=== PATIENT | male | born 1995 | race Hispanic/Latino ===

== ENCOUNTER 2017-04-10 02:14 | Emergency (ER) | payer OTHER ==
[2017-04-10 02:30] VITALS: BMI 23.0
[2017-04-10 02:34] VITALS: BP 122/48; PULSE 101; RESP 18; TEMP 98; O2SAT 97
--- NOTE | 2017-04-10 04:09 | ED PDOC ---
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, reports nausea Past Medical History Reviewed: Historical Data, Nursing Documentation, Vital Signs Vital Signs: Last Vital Signs Temp 98.0 F 04/10/17 02:30 Pulse 101 H 04/10/17 02:30 Resp 18 04/10/17 02:30 BP 122/48 L 04/10/17 02:30 Pulse Ox 97 04/10/17 02:30 - Medical History PMH: No Chronic Diseases - Surgical History Surgical History: No Surg Hx - Family History Family History: States: No Known Family Hx - Living Arrangements Living Arrangements: With Family - Social History Current smoker - smoking cessation education provided: No Alcohol: Occasional - Allergies Allergies/Adverse Reactions: Allergies Allergy/AdvReac Type Severity Reaction Status Date / Time No Known Allergies Allergy Verified 04/10/17 02:29 Review of Systems ROS Statement: Except As Marked, All Systems Reviewed And Found Negative Constitutional: Negative for: Fever, Chills Respiratory: Negative for: Cough, Shortness of Breath Gastrointestinal: Positive for: Nausea. Negative for: Vomiting Skin: Positive for: Other (Laceration) Physical Exam - Reviewed Nursing Documentation Reviewed: Yes Vital Signs Reviewed: Yes - Physical Exam Appears: Positive for: Well, Non-toxic, No Acute Distress Head Exam: Positive for: ATRAUMATIC, NORMAL INSPECTION, NORMOCEPHALIC Skin: Positive for: Warm. Negative for: Normal Color (3 cm linear laceration, right temporal region) Eye Exam: Positive for: EOMI, Normal appearance, PERRL ENT: Positive for: Normal ENT Inspection Neck: Positive for: Normal, Painless ROM Cardiovascular/Chest: Positive for: Regular Rate, Rhythm Respiratory: Positive for: CNT, Normal Breath Sounds Back: Positive for: Normal Inspection Extremity: Positive for: Normal ROM Neurologic/Psych: Positive for: Alert, Oriented, Gait (Unsteady) - ECG O2 Sat by Pulse Oximetry: 97 Disposition - Clinical Impression Clinical Impression: Head injury, Alcohol abuse, Scalp laceration - Disposition Disposition: Routine/Home Disposition Time: 04:10 Condition: GOOD Additional Instructions: Keep wound clean and dry with antibiotic ointment. Instructions: Staple Care (ED) Laceration - Laceration Repair scalp laceration Wound Length (In cm): 3 Description Of Wound: Linear, Clean Wound Cleansed With: Sterile Saline Wound Examination: Irrigated With Saline, No FB With Wound Exploration Wound Closure: [place] (#3)
--- NOTE | 2017-04-10 08:17 | CT ---
PROCEDURE: CT HEAD WITHOUT CONTRAST. HISTORY: head injury, ETOH COMPARISON: None available. TECHNIQUE: Axial computed tomography images were obtained through the head/brain without intravenous contrast. Radiation dose: Total exam DLP = 947.87 mGy-cm. This CT exam was performed using one or more of the following dose reduction techniques: Automated exposure control, adjustment of the mA and/or kV according to patient size, and/or use of iterative reconstruction technique. FINDINGS: HEMORRHAGE: No intracranial hemorrhage. BRAIN: Normal olivarez-white matter differentiation and density are appreciated throughout the cerebrum and cerebellum with the brainstem appearing unremarkable as well. There is no mass effect. There is no suspicious extra-axial fluid collection and the midline brain anatomy appears diffusely unremarkable. VENTRICLES: Unremarkable. No hydrocephalus. CALVARIUM: No destructive bony lesion or displaced fracture identified including through the skullbase. However note is made of a limited right upper temporal scalp hematoma or edema. PARANASAL SINUSES: Unremarkable as visualized. No significant inflammatory changes. MASTOID AIR CELLS: Unremarkable as visualized. No inflammatory changes. OTHER FINDINGS: None. IMPRESSION: Normal intracranial pattern by standard CT technique without contrast. Potential limited right temporal scalp edema or hematoma superiorly. No fracture of the calvarium or skullbase is identified nevertheless.
== END 2017-04-10 04:25 | disposition home or self-care (01) ==
LOC: H.ER 02:14
DX: S01.01XA Laceration without foreign body of scalp, initial encounter (principal); F10.10 Alcohol abuse, uncomplicated; S09.90XA Unspecified injury of head, initial encounter
CPT/HCPCS: 70450; 96372; 99282; J2405